=== PATIENT | male | born 1995 | race Caucasian/White ===

== ENCOUNTER 2016-07-19 17:26 | Emergency (ER) | payer OTHER ==
[~2016-07-19] VITALS: Ht 167.6 cm; Wt 75.0 kg
[2016-07-19 17:28] VITALS: BP 148/72
[2016-07-19] MEDS ORDERED: DIPHENHYDRAMINE 25 MG CAPSULE ONE (17:56)
[2016-07-19] MEDS ORDERED: FAMOTIDINE 20 MG TABLET ONE (17:57)
[2016-07-19] MEDS ORDERED: FAMOTIDINE 20 MG TABLET PO ONE (18:00)
[2016-07-19] MEDS ORDERED: DIPHENHYDRAMINE 25 MG CAPSULE PO ONE (18:00)
== END 2016-07-19 18:48 | disposition home or self-care (01) ==
LOC: ED 18:00
DX: T78.1XXA Other adverse food reactions, not elsewhere classified, initial encounter (principal); X58.XXXA Exposure to other specified factors, initial encounter
CPT/HCPCS: 99284; J7512; Q0163